=== PATIENT | female | born 1975 | race Caucasian/White ===

== ENCOUNTER 2018-05-25 16:20 | Emergency (ER) | payer SELFPAY ==
[2018-05-25 16:29] VITALS: BP 101/69; PULSE 77; TEMP 98.4; BMI 22.4
--- NOTE | 2018-05-25 17:01 | PDOC ---
History of Present Illness - General Chief Complaint: RX Refill Stated Complaint: PRESCRIPTION REFILL Time Seen by Provider: 05/25/18 16:33 History Source: Patient Exam Limitations: No Limitations - History of Present Illness Initial Comments: 05/25/18 16:56 HISTORY OF PRESENT ILLNESS: This is a 43-year-old woman past medical history of ulcerative colitis of presents emergency Department needing medication refill. Patient states she is vacationing from [place] and forgot to pack her azathioprine to help control her ulcerative colitis washes her [place]. Patient states she took her last dose this morning and is requesting a refill of her medication. Patient denies all complaints at this time. No recent travel or sick contacts. PAST MEDICAL HISTORY: [facility] SURGICAL HISTORY: Denies ALLERGIES: No known drug allergies REVIEW OF SYSTEMS General/Constitutional: Denies fever or chills. Denies weakness, weight change. HEENT: Denies change in vision. Denies ear pain or discharge. Denies sore throat. Cardiovascular: Denies chest pain or shortness of breath. Respiratory: Denies cough, wheezing, or hemoptysis. Gastrointestinal: Denies nausea, vomiting, diarrhea or constipation. Denies rectal bleeding. Genitourinary: Denies dysuria, frequency, or change in urination. Musculoskeletal: Denies joint or muscle swelling or pain. Denies neck or back pain. Skin and breasts: Denies rash or easy bruising. Neurologic: Denies headache, vertigo, loss of consciousness, or loss of sensation. Psychiatric: Denies depression or anxiety. Endocrine: Denies increased thirst. Denies abnormal weight change. Hematologic/Lymphatic: Denies anemia, easy bleeding, or history of blood clots. Allergic/Immunologic: Denies hives or skin allergy. Denies latex allergy. PHYSICAL EXAM General Appearance: Well-appearing, appropriately dressed. No apparent distress , no intoxication. HEENT: EOMI, PERRLA, normal ENT inspection, normal voice, TMs normal, pharynx normal. No conjunctival pallor. No photophobia, scleral icterus. Neck: Supple. Trachea midline. No tenderness, rigidity, carotid bruit, stridor , lymphadenopathy, or thyromegaly. Respiratory/Chest: Lungs CTAB. No shortness of breath, chest tenderness, respiratory distress, accessory muscle use. No crackles, rales, rhonchi, stridor , wheezing, dullness Cardiovascular: RRR. S1, S2. No JVD, murmur, bradycardia, tachycardia. Vascular Pulses: Dorsalis-Pedis (R): 2+, Dorsalis-Pedis (L): 2+ Gastrointestinal/Abdominal: Normal bowel sounds. Abdomen soft, non-distended. No tenderness or rebound tenderness. No organomegaly, pulsatile mass, guarding , hernia, hepatomegaly, splenomegaly. Lymphatic: No adenopathy, tenderness. Musculoskeletal/Extremities: Normal inspection. FROM of all extremities, normal capillary refill. Pelvis Stable. No CVA tenderness. No tenderness to extremities, pedal edema, swelling, erythema or deformity. Integumentary: Appropriate color, dry, warm. No cyanosis, erythema, jaundice or rash Neurologic: fibrous plasterer II-XII intact. Fully oriented, alert. Appropriate mood/affect. Motor strength 5/5. No appreciable EOM palsy, facial droop or sensory deficit. Past History - Past Medical History Allergies/Adverse Reactions: Allergies Allergy/AdvReac Type Severity Reaction Status Date / Time No Known Allergies Allergy Verified 05/25/18 16:26 Home Medications: Ambulatory Orders Azathioprine 50 mg PO BID #28 tablet 05/25/18 COPD: No GI Disorders: Yes (ulcerative colitis) Psychiatric Problems: Yes Other medical history: migraines - Surgical History Appendectomy: Yes - Suicide/Smoking/Psychosocial Hx Smoking History: Never smoked *Physical Exam - Vital Signs Last Vital Signs Temp Pulse Resp BP Pulse Ox 98.4 F 77 18 101/69 96 05/25/18 16:26 05/25/18 16:26 05/25/18 16:26 05/25/18 16:26 05/25/18 16:26 Medical Decision Making - Medical Decision Making 05/25/18 16:56 A/P: 43-year-old woman with history of ulcerative colitis is requesting refill of her azathioprine Physical exam is within normal limits. We'll send prescription for azathioprine 50 mg twice a day for 14 days to cover the patient until she can return to [place] *DC/Admit/Observation/Transfer Diagnosis at time of Disposition: Medication refill - Discharge Dispostion Disposition: HOME Condition at time of disposition: Stable Decision to Admit order: No - Prescriptions Prescriptions: Azathioprine 50 mg PO BID #28 tablet - Referrals - Patient Instructions Additional Instructions: Take her medication as prescribed. Enjoy the rest of his stay in the [place] Return to emergency room for any concerns. - Post Discharge Activity
== END 2018-05-25 17:08 | disposition home or self-care (01) ==
LOC: JERFT 16:20
DX: Z76.0 Encounter for issue of repeat prescription (principal)
CPT/HCPCS: 99281-25